=== PATIENT | female | born 1995 | race Caucasian/White ===

== ENCOUNTER 2017-12-27 19:03 | Emergency (ER) | payer OTHER, SELFPAY | END 2017-12-27 22:07 | disposition home or self-care (01) | PROVIDERS: Emergency Provider Emergency Medicine; Visit Provider Emergency Medicine | DX: R11.2 Nausea with vomiting, unspecified (principal); E86.0 Dehydration; R19.7 Diarrhea, unspecified; Z3A.18 18 weeks gestation of pregnancy | CPT/HCPCS: 36415; 80048; 81001; 85025; 87077; 87086; 96361; 96374; 99058; 99284; J2405 ==